=== PATIENT | male | born 1975 | race Caucasian/White ===

== ENCOUNTER 2018-11-11 21:28 | Emergency (ER) | payer MEDICAID ==
[~2018-11-11] VITALS: Ht 165.1 cm; Wt 68.0 kg
[2018-11-11 21:31] VITALS: BP_SYST 130
[2018-11-11] MEDS ORDERED: KETOROLAC TROMETHAMINE 60 MG/2 ML VIAL IM ONE (22:30)
[2018-11-11 23:20] VITALS: BP_SYST 130
== END 2018-11-11 23:18 | disposition home or self-care (01) ==
LOC: SED 21:28
DX: L03.211 Cellulitis of face (principal); R03.0 Elevated blood-pressure reading, without diagnosis of hypertension; F17.210 Nicotine dependence, cigarettes, uncomplicated
CPT/HCPCS: 96372; 99283; J1885

== ENCOUNTER 2022-06-11 01:48 | Emergency (ER) | payer MEDICAID ==
[~2022-06-11] VITALS: Ht 165.1 cm; Wt 69.4 kg
--- NOTE | 2022-06-11 01:48 | NUR ---
Note undone in EDM - 06/11/22 at 0222 by NICOLE Patient triaged and placed in waiting room. VSS and patient appears in no acute distress at this time. Accompanied by , awaiting available bed, and MD notified of need for MSE.
[2022-06-11 02:00] VITALS: BP_SYST 129
--- NOTE | 2022-06-11 03:50 | NUR ---
Patient to ER bed 4 to gown for evaluation. Side rails up. Report given to Yovanny NIXON.
--- NOTE | 2022-06-11 03:50 | NUR ---
Pt report received. Pt presents with ~5 cm gaping lac to inferior aspect of right calf. No active bleeding noted. Pt states that he cut it on a broken mirror.
[2022-06-11] MEDS ORDERED: LIDOCAINE/EPI 1% 1:100000 20 ML VIAL INJ ONE ×2 (04:00)
--- NOTE | 2022-06-11 04:00 | NUR ---
Dr. Wilson at bedside.
--- NOTE | 2022-06-11 04:30 | NUR ---
Lac site irrigated with ~500 mL sterile NS. No debris noted to wound. No active bleeding. Pt tolerated well. Suture set up at bedside.
--- NOTE | 2022-06-11 05:00 | NUR ---
Dr. Wilson at bedside to suture laceration. Laceration well approximated with 5 sutures. Bacitracin applied, non adherent dsg applied and secured with Kerlex dsg. Cap refil < 3 sec to nail beds of RLE, good distal pulses.
[2022-06-11 05:40] VITALS: BP_SYST 122
[2022-06-11] MEDS ORDERED: BACITRACIN 1 GM OINT TP ONE (05:40)
--- NOTE | 2022-06-11 05:40 | NUR ---
Patient given written and verbal discharge instructions and verbalizes understanding. ER MD discussed with patient the results and treatment provided. Patient in stable condition. ID arm band removed. No Rx given. Patient educated on pain management and to follow up with PMD. Pain Scale 0/10 Opportunity for questions provided and answered. Medication side effect fact sheet provided.
== END 2022-06-11 05:40 | disposition home or self-care (01) ==
LOC: SED 01:48
DX: S81.812A Laceration without foreign body, left lower leg, initial encounter (principal); R03.0 Elevated blood-pressure reading, without diagnosis of hypertension; W25.XXXA Contact with sharp glass, initial encounter; Y93.89 Activity, other specified; Y92.89 Other specified places as the place of occurrence of the external cause; Y99.8 Other external cause status
CPT/HCPCS: 99282